=== PATIENT | female | born 1960 | race Caucasian/White ===

== ENCOUNTER 2025-03-06 18:39 | Emergency (ER) | payer MEDICARE, MEDICAID ==
[~2025-03-06] VITALS: Ht 157.4 cm; Wt 68.0 kg
[2025-03-06 20:06] LABS: BASO # 0.0 10*3/uL (0.0-0.1); BASO % 0.5 % (0.0-1.0); EOS # 0.1 10*3/uL (0.0-0.4); EOS % 1.9 % (1.0-4.0); MEAN CELL VOLUME 88.4 fl (81.0-99.0); MEAN CORPUSCULAR HGB 29.9 pg (27.0-31.0); MEAN PLATELET VOLUME 10.3 fl (9.6-12.3); MONO # 0.9 10*3/uL (0.1-1.0); MONO % 11.3 % (3.0-9.0); NEUT # 3.6 10*3/uL (2.3-7.9); NEUT % 48.0 % (47.0-73.0); NUCLEATED RED BLOOD CELL 0.0 % (0.0-0.0); NUCLEATED RED BLOOD CELL 0.0 10*3/uL (0.0-0.0); PLATELET COUNT AUTOMATED 181 10*3/uL (130-400); RED CELL DISTRI WIDTH 12.4 % (0-14.5)
[2025-03-06 20:14] LABS: BILIRUBIN Negative (Negative); BLOOD Trace-Intact (Negative); CLARITY Clear (Clear); COLOR Yellow (Yellow); KETONE Negative (Negative); LEUKO ESTERASE 1+ (Negative); NITRITE Negative (Negative); PH 5.5 (4.5-8.0); SPECIFIC GRAVITY 1.015 (1.001-1.030); UROBILINOGEN 0.2 E.U./dl (0.0-1.0)
[2025-03-06] MEDS ORDERED: Water, Sterile 10 ML VIAL IM ONE (20:15)
[2025-03-06 20:21] LABS: BACTERIA 1+; MUCOUS 1+; WBC 16-20 wbc/hpf (0-5)
[2025-03-06 20:22] LABS: URINE AMPHETAMINES Negative (1000ng/ml); URINE BARBITURATES Negative (200ng/ml); URINE BENZODIAZEPINES Positive (200ng/ml); URINE CANNABINOIDS (THC) Negative (50ng/ml); URINE COCAINE Negative (300ng/ml); URINE METHADONE Negative (300ng/ml); URINE OPIATES Negative (300ng/ml); URINE PHENCYCLIDINE Negative (25ng/ml)
[2025-03-06 20:27] LABS: BUN 17 mg/dl (9-23); SGPT/ALT 79 U/L (5-49)
[2025-03-06 20:30] LABS: ETHYL ALCOHOL < 3.0 mg/dl (<3)
[2025-03-06] MEDS ORDERED: FISH OIL 1,0001 EAC2 PO (21:24)
[2025-03-06] MEDS ORDERED: FLUVOXAMINE100 MG PO (21:25)
[2025-03-06] MEDS ORDERED: FYCOMPA PO (21:28)
[2025-03-06] MEDS ORDERED: FLUVOXAMINE50 MG PO (21:30)
[2025-03-06] MEDS ORDERED: JANUVIA100 MG PO (21:31)
[2025-03-06] MEDS ORDERED: VIMPAT100 MG PO (21:32)
[2025-03-06] MEDS ORDERED: VIMPAT200 MG PO (21:35)
[2025-03-06] MEDS ORDERED: KEPPRA500 MG PO (21:36)
[2025-03-06] MEDS ORDERED: CEPHULAC10 GM/151 PO (21:36)
[2025-03-06] MEDS ORDERED: KEPPRA1000 MG PO (21:37)
[2025-03-06] MEDS ORDERED: LINZESS145 MC1 PO (21:38)
[2025-03-06] MEDS ORDERED: SINGULAIR10 M1 PO (21:39)
[2025-03-06] MEDS ORDERED: NITROFURANTOIN50 M2 PO (21:39)
[2025-03-06] MEDS ORDERED: OYSTER SHELL C1 EAC9 PO (21:40)
[2025-03-06] MEDS ORDERED: INVEGA6 MG PO (21:47)
[2025-03-06] MEDS ORDERED: RISPERDAL0.5 MG PO (21:50)
[2025-03-06] MEDS ORDERED: SODIUM CHLORI1000 MG PO (21:52)
[2025-03-06] MEDS ORDERED: ALDACTONE50 M1 PO (21:54)
[2025-03-06] MEDS ORDERED: Ciprofloxacin Hydrochloride 500 MG TAB PO ONE (21:55)
[2025-03-06] MEDS ORDERED: VITAMIN E400 UNIT PO (21:55)
[2025-03-06] MEDS ORDERED: VITAMIN D3125 MC1 PO (21:55)
[2025-03-06] MEDS ORDERED: VRAYLAR3 MG PO (21:57)
[2025-03-06] MEDS ORDERED: XIFAXAN550 MG PO (21:58)
[2025-03-06] MEDS ORDERED: XCOPRI PO (21:58)
[2025-03-06] MEDS ORDERED: MAGNESIUM OXIDE 400 MG TAB PO ONE (22:00)
[2025-03-06] MEDS ORDERED: FEVER REDUCER650 MG R (22:00)
[2025-03-06] MEDS ORDERED: AKWA TEARS 15 M15 ML OPH (22:01)
[2025-03-06] MEDS ORDERED: ANTACID ANTI-G355 M1 PO (22:03)
[2025-03-06] MEDS ORDERED: VALIUM2 MG PO (22:11)
[2025-03-06] MEDS ORDERED: EXPECTORAN100 MG/52 PO (22:12)
[2025-03-06] MEDS ORDERED: HYDROXYZINE HYD50 MG PO (22:13)
[2025-03-06] MEDS ORDERED: IBUPROFEN400 MG PO (22:15)
[2025-03-06] MEDS ORDERED: LIPITOR40 MG PO (22:18)
[2025-03-06] MEDS ORDERED: ACIDOPHILUS1 EAC4 PO (22:19)
[2025-03-06] MEDS ORDERED: BANOPHEN25 MG PO (22:20)
[2025-03-06] MEDS ORDERED: CLONAZEPAM0.25 MG PO (22:27)
[2025-03-06] MEDS ORDERED: CIPRO500 MG PO (22:28)
[2025-03-06] MEDS ORDERED: DAILY VITE1 EACH PO (22:29)
[2025-03-06] MEDS ORDERED: STOOL SOFTENER100 MG PO (22:29)
[2025-03-06] MEDS ORDERED: ZETIA10 MG PO (22:30)
[2025-03-06] MEDS ORDERED: FIASP 100100 UNIT/1 SQ (22:31)
[2025-03-06] MEDS ORDERED: MIRALAX17 GM PO (22:32)
== END 2025-03-06 22:17 ==
LOC: ED 18:39
PROVIDERS: Internal Medicine
DX: F63.81 Intermittent explosive disorder (principal); N39.0 Urinary tract infection, site not specified; E83.42 Hypomagnesemia; R74.01 Elevation of levels of liver transaminase levels; Z79.899 Other long term (current) drug therapy

== ENCOUNTER 2025-03-06 19:07 | Inpatient (IN) | payer MEDICARE, MEDICAID ==
[~2025-03-06] VITALS: Ht 165 cm; Wt 67.0 kg
[2025-03-06] MEDS ORDERED: FISH OIL 1,0001 EAC2 PO (21:24)
[2025-03-06] MEDS ORDERED: FLUVOXAMINE100 MG PO (21:25)
[2025-03-06] MEDS ORDERED: FYCOMPA PO (21:28)
[2025-03-06] MEDS ORDERED: FLUVOXAMINE50 MG PO (21:30)
[2025-03-06] MEDS ORDERED: JANUVIA100 MG PO (21:31)
[2025-03-06] MEDS ORDERED: VIMPAT100 MG PO (21:32)
[2025-03-06] MEDS ORDERED: VIMPAT200 MG PO (21:35)
[2025-03-06] MEDS ORDERED: KEPPRA500 MG PO (21:36)
[2025-03-06] MEDS ORDERED: CEPHULAC10 GM/151 PO (21:36)
[2025-03-06] MEDS ORDERED: KEPPRA1000 MG PO (21:37)
[2025-03-06] MEDS ORDERED: LINZESS145 MC1 PO (21:38)
[2025-03-06] MEDS ORDERED: NITROFURANTOIN50 M2 PO (21:39)
[2025-03-06] MEDS ORDERED: SINGULAIR10 M1 PO (21:39)
[2025-03-06] MEDS ORDERED: OYSTER SHELL C1 EAC9 PO (21:40)
[2025-03-06] MEDS ORDERED: INVEGA6 MG PO (21:47)
[2025-03-06] MEDS ORDERED: RISPERDAL0.5 MG PO (21:50)
[2025-03-06] MEDS ORDERED: SODIUM CHLORI1000 MG PO (21:52)
[2025-03-06] MEDS ORDERED: ALDACTONE50 M1 PO (21:54)
[2025-03-06] MEDS ORDERED: VITAMIN D3125 MC1 PO (21:55)
[2025-03-06] MEDS ORDERED: VITAMIN E400 UNIT PO (21:55)
[2025-03-06] MEDS ORDERED: VRAYLAR3 MG PO (21:57)
[2025-03-06] MEDS ORDERED: XIFAXAN550 MG PO (21:58)
[2025-03-06] MEDS ORDERED: XCOPRI PO (21:58)
[2025-03-06] MEDS ORDERED: FEVER REDUCER650 MG R (22:00)
[2025-03-06] MEDS ORDERED: AKWA TEARS 15 M15 ML OPH (22:01)
[2025-03-06] MEDS ORDERED: ANTACID ANTI-G355 M1 PO (22:03)
[2025-03-06] MEDS ORDERED: VALIUM2 MG PO (22:11)
[2025-03-06] MEDS ORDERED: EXPECTORAN100 MG/52 PO (22:12)
[2025-03-06] MEDS ORDERED: HYDROXYZINE HYD50 MG PO (22:13)
[2025-03-06] MEDS ORDERED: diazePAM 5 MG TAB PO PRN (22:15)
[2025-03-06] MEDS ORDERED: hydrOXYzine 50 MG CAP PO PRN (22:15)
[2025-03-06] MEDS ORDERED: IBUPROFEN400 MG PO (22:15)
[2025-03-06] MEDS ORDERED: LIPITOR40 MG PO (22:18)
[2025-03-06] MEDS ORDERED: ACIDOPHILUS1 EAC4 PO (22:19)
[2025-03-06] MEDS ORDERED: BANOPHEN25 MG PO (22:20)
[2025-03-06] MEDS ORDERED: LORazepam 1 MG TAB PO PRN (22:25)
[2025-03-06] MEDS ORDERED: CLONAZEPAM0.25 MG PO (22:27)
[2025-03-06] MEDS ORDERED: CIPRO500 MG PO (22:28)
[2025-03-06] MEDS ORDERED: STOOL SOFTENER100 MG PO (22:29)
[2025-03-06] MEDS ORDERED: DAILY VITE1 EACH PO (22:29)
[2025-03-06] MEDS ORDERED: ZETIA10 MG PO (22:30)
[2025-03-06] MEDS ORDERED: Water, Sterile 10 ML VIAL IM PRN (22:30)
[2025-03-06 22:31] VITALS: BP 130/49
[2025-03-06] MEDS ORDERED: FIASP 100100 UNIT/1 SQ (22:31)
[2025-03-06] MEDS ORDERED: MIRALAX17 GM PO (22:32)
[2025-03-06] MEDS ORDERED: ACETAMINOPHEN 325 MG TAB PO PRN (22:50)
[2025-03-06] MEDS ORDERED: MG-AL HYDROXIDE/SIMETICONE 30 ML UDC PO PRN (22:50)
[2025-03-06] MEDS ORDERED: Menthol/Zinc Oxide 4 GM THIN T PRN (23:00)
[2025-03-07] MEDS ORDERED: Glycerin/Hypromellose/Polyet 300 DRP BOT OPH PRN (05:10)
[2025-03-07 06:23] LABS: BASO # 0.0 10*3/uL (0.0-0.1); BASO % 0.4 % (0.0-1.0); EOS # 0.2 10*3/uL (0.0-0.4); EOS % 2.4 % (1.0-4.0); MEAN CELL VOLUME 86.7 fl (81.0-99.0); MEAN CORPUSCULAR HGB 30.3 pg (27.0-31.0); MEAN PLATELET VOLUME 10.7 fl (9.6-12.3); MONO # 0.9 10*3/uL (0.1-1.0); MONO % 11.2 % (3.0-9.0); NEUT # 3.6 10*3/uL (2.3-7.9); NEUT % 46.3 % (47.0-73.0); NUCLEATED RED BLOOD CELL 0.0 % (0.0-0.0); NUCLEATED RED BLOOD CELL 0.0 10*3/uL (0.0-0.0); PLATELET COUNT AUTOMATED 188 10*3/uL (130-400); RED CELL DISTRI WIDTH 12.6 % (0-14.5)
[2025-03-07 06:38] LABS: BUN 13 mg/dl (9-23); LDL CHOLESTEROL 27 mg/dL (9-159); SGPT/ALT 89 U/L (5-49)
[2025-03-07 06:56] LABS: VALPROIC ACID (DEPAKENE) < 3.0 ug/ml (50-100)
[2025-03-07] MEDS ORDERED: Insulin Lispro, Recombinant 1 UNIT/0.01 ML UN SC SCH (07:00)
[2025-03-07 07:22] LABS: VITAMIN D, 25-HYDROXY 62.1 ng/mL (30-100)
[2025-03-07] MEDS ORDERED: INSULIN LISPRO 1 UNIT/0.01 ML SQ SCH ×2 (07:30→16:30)
[2025-03-07 08:00] VITALS: BP 79/45
[2025-03-07] MEDS ORDERED: EZETIMIBE 10 MG TAB PO SCH (09:00)
[2025-03-07] MEDS ORDERED: Polyethylene Glycol 3350 17 GM PACKET PO SCH (09:00)
[2025-03-07] MEDS ORDERED: SPIRONOLACTONE 25 MG TAB PO SCH (09:00)
[2025-03-07] MEDS ORDERED: SODIUM CHLORIDE 1 GM TAB PO SCH ×2 (09:00→09:16)
[2025-03-07] MEDS ORDERED: Cholecalciferol 5,000 IU CAP (125 MCG) PO SCH (09:00)
[2025-03-07] MEDS ORDERED: LEVETIRACETAM 500 MG TAB PO SCH ×2 (09:00)
[2025-03-07] MEDS ORDERED: Rivastigmine Tartrate 4.6 MG/24 HR PATCH T SCH (09:00)
[2025-03-07] MEDS ORDERED: CALCIUM (OSCAL) 500MG PO SCH (09:00)
[2025-03-07] MEDS ORDERED: Paliperidone 6 MG TER PO SCH (09:00)
[2025-03-07] MEDS ORDERED: RIFAXIMIN 550 MG TAB PO SCH ×2 (09:00→09:16)
[2025-03-07] MEDS ORDERED: LINACLOTIDE 145 MCG CAP PO SCH (09:00)
[2025-03-07] MEDS ORDERED: LINAGLIPTIN 5 MG TAB PO SCH (09:00)
[2025-03-07] MEDS ORDERED: Insulin Glargine, Recombinan 300 UNITS/3 ML PEN SC SCH (09:00)
[2025-03-07] MEDS ORDERED: NITROFURANTOIN MACROCRYSTAL 50 MG PO SCH (09:00)
[2025-03-07] MEDS ORDERED: Ciprofloxacin Hydrochloride 500 MG TAB PO SCH (09:00)
[2025-03-07] MEDS ORDERED: MULTIVITAMIN 1 TAB TAB PO SCH (09:00)
[2025-03-07] MEDS ORDERED: DOCUSATE SODIUM 100 MG CAP PO SCH (09:00)
[2025-03-07] MEDS ORDERED: Lactobacillus Acidophilus/LA 1 TAB TAB PO SCH (10:00)
[2025-03-07] MEDS ORDERED: LACOSAMIDE 50 MG TAB PO SCH ×2 (10:00→22:00)
[2025-03-07] MEDS ORDERED: CENOBAMATE 200 MG PO SCH (10:00)
[2025-03-07] MEDS ORDERED: DEXTROSE 50% 25 GM/50 ML VIAL IV PRN (13:05)
[2025-03-07 14:00] VITALS: BP 143/62
[2025-03-07] MEDS ORDERED: LACTULOSE 20 GM/30 ML UDC PO SCH (21:00)
[2025-03-07] MEDS ORDERED: BREXPIPRAZOLE 1 MG TABLET PO SCH (21:00)
[2025-03-07] MEDS ORDERED: ATORVASTATIN CALCIUM 40 MG TABLET PO SCH (21:00)
[2025-03-07] MEDS ORDERED: Memantine Hydrochloride 5 MG TAB PO SCH (21:00)
[2025-03-07] MEDS ORDERED: PERAMPANEL 4 MG PO SCH (22:00)
[2025-03-08 08:00] VITALS: BP 115/48
[2025-03-08 20:00] VITALS: BP 113/55
[2025-03-09 09:03] VITALS: BP 130/63
[2025-03-09 20:00] VITALS: BP 120/63
[2025-03-09] MEDS ORDERED: Memantine Hydrochloride 5 MG TAB PO SCH (21:00)
[2025-03-10] MEDS ORDERED: LACOSAMIDE 50 MG TAB PO SCH ×2 (07:30→19:30)
[2025-03-10 08:00] VITALS: BP 123/69
[2025-03-10] MEDS ORDERED: Rivastigmine Tartrate 9.5 MG/24 HR PATCH T SCH (09:00)
[2025-03-10] MEDS ORDERED: Folic Acid/Vitamin B Complex 1 TAB TAB PO SCH (10:00)
[2025-03-10 20:00] VITALS: BP 132/64
[2025-03-11 08:51] VITALS: BP 131/65
[2025-03-11 20:00] VITALS: BP 133/64
[2025-03-12 07:48] VITALS: BP 102/57
[2025-03-12] MEDS ORDERED: Memantine Hydrochloride 5 MG TAB PO SCH (09:00)
[2025-03-12] MEDS ORDERED: PALIPERIDONE 9 MG PO SCH (09:00)
[2025-03-12 20:00] VITALS: BP 111/68
[2025-03-13 08:00] VITALS: BP 119/77
[2025-03-13] MEDS ORDERED: RIVASTIGMINE 13.3 MG/24 HR TDM T SCH (09:00)
[2025-03-13] MEDS ORDERED: FOAM BANDAGE 5X5 T ONE (11:55)
[2025-03-13 20:00] VITALS: BP 124/79
[2025-03-14 08:00] VITALS: BP 97/59
[2025-03-14 20:00] VITALS: BP 126/67
[2025-03-15 07:47] LABS: BASO # 0.0 10*3/uL (0.0-0.1); BASO % 0.2 % (0.0-1.0); EOS # 0.1 10*3/uL (0.0-0.4); EOS % 1.6 % (1.0-4.0); MEAN CELL VOLUME 88.8 fl (81.0-99.0); MEAN CORPUSCULAR HGB 29.5 pg (27.0-31.0); MEAN PLATELET VOLUME 10.9 fl (9.6-12.3); MONO # 0.7 10*3/uL (0.1-1.0); MONO % 7.8 % (3.0-9.0); NEUT # 6.3 10*3/uL (2.3-7.9); NEUT % 70.9 % (47.0-73.0); NUCLEATED RED BLOOD CELL 0.0 % (0.0-0.0); NUCLEATED RED BLOOD CELL 0.0 10*3/uL (0.0-0.0); PLATELET COUNT AUTOMATED 142 10*3/uL (130-400); RED CELL DISTRI WIDTH 12.9 % (0-14.5)
[2025-03-15 08:00] VITALS: BP 120/59
[2025-03-15 08:06] LABS: BUN 20 mg/dl (9-23); SGPT/ALT 161 U/L (5-49)
[2025-03-15 19:52] VITALS: BP 128/77
[2025-03-16 07:44] VITALS: BP 144/63
[2025-03-16 20:00] VITALS: BP 145/70
[2025-03-16] MEDS ORDERED: LEVETIRACETAM 500 MG TAB PO SCH (21:00)
[2025-03-17 08:00] VITALS: BP 136/57
[2025-03-17 20:00] VITALS: BP 125/52
[2025-03-18 08:31] VITALS: BP 135/65
[2025-03-18 20:00] VITALS: BP 147/68
[2025-03-19] MEDS ORDERED: LACOSAMIDE 50 MG TAB PO SCH ×2 (01:55→10:00)
[2025-03-19 06:32] LABS: BASO # 0.0 10*3/uL (0.0-0.1); BASO % 0.3 % (0.0-1.0); BUN 25 mg/dl (9-23); EOS # 0.1 10*3/uL (0.0-0.4); EOS % 1.0 % (1.0-4.0); MEAN CELL VOLUME 89.0 fl (81.0-99.0); MEAN CORPUSCULAR HGB 29.9 pg (27.0-31.0); MEAN PLATELET VOLUME 11.3 fl (9.6-12.3); MONO # 0.9 10*3/uL (0.1-1.0); MONO % 9.6 % (3.0-9.0); NEUT # 5.3 10*3/uL (2.3-7.9); NEUT % 58.3 % (47.0-73.0); NUCLEATED RED BLOOD CELL 0.0 % (0.0-0.0); NUCLEATED RED BLOOD CELL 0.0 10*3/uL (0.0-0.0); PLATELET COUNT AUTOMATED 157 10*3/uL (130-400); RED CELL DISTRI WIDTH 13.3 % (0-14.5); SGPT/ALT 104 U/L (5-49)
[2025-03-19 07:46] VITALS: BP 118/69
[2025-03-19 19:45] VITALS: BP 138/68
[2025-03-20 09:33] VITALS: BP 116/88
[2025-03-20 20:00] VITALS: BP 127/68
[2025-03-21 07:58] VITALS: BP 147/62
[2025-03-21] MEDS ORDERED: INVEGA9 MG PO (08:54)
[2025-03-21] MEDS ORDERED: CLONAZEPAM0.5 M2 PO (08:54)
[2025-03-21] MEDS ORDERED: LACTULOSE10 GM/151 PO (08:54)
[2025-03-21] MEDS ORDERED: MEMANTINE HCL10 MG PO (08:54)
[2025-03-21] MEDS ORDERED: THORAZINE25 MG PO (08:54)
[2025-03-21] MEDS ORDERED: FLUVOXAMINE50 MG PO ×2 (08:54)
[2025-03-21] MEDS ORDERED: RIVASTIGMINE1 EAC2 T (08:54)
[2025-03-21] MEDS ORDERED: LACOSAMIDE50 M1 PO ×2 (10:32)
== END 2025-03-21 13:50 | DRG 883 ==
LOC: 3N 19:07
PROVIDERS: Counselor Professional; Student in an Organized Health Care Education/Training Program; ADMIT Psychiatry & Neurology Psychiatry; ATTEND Psychiatry & Neurology Psychiatry
PROC: GZHZZZZ Group Psychotherapy (ICD-10-PCS; principal; 2025-03-08)
PROC: GZ56ZZZ Individual Psychotherapy, Supportive (ICD-10-PCS; 2025-03-08)
DX: F63.81 Intermittent explosive disorder (principal); F79 Unspecified intellectual disabilities; F02.811 Dementia in other diseases classified elsewhere, unspecified severity, with agitation; F02.82 Dementia in other diseases classified elsewhere, unspecified severity, with psychotic disturbance; E83.42 Hypomagnesemia; G30.9 Alzheimer's disease, unspecified; G40.909 Epilepsy, unspecified, not intractable, without status epilepticus; E11.9 Type 2 diabetes mellitus without complications; F25.9 Schizoaffective disorder, unspecified; K59.09 Other constipation; R74.01 Elevation of levels of liver transaminase levels; F42.9 Obsessive-compulsive disorder, unspecified; Z82.49 Family history of ischemic heart disease and other diseases of the circulatory system; Z79.899 Other long term (current) drug therapy; Z79.01 Long term (current) use of anticoagulants; Z79.2 Long term (current) use of antibiotics; Z79.4 Long term (current) use of insulin